=== PATIENT | female | born 1940 | race Caucasian/White ===

== ENCOUNTER 2020-10-24 01:11 | Day surgery (SDC) | payer MEDICARE, SELFPAY ==
--- NOTE | 2020-10-18 07:12 | P.HP_ITS ---
History of Present Illness History of Present Illness Consent: Risks, benefits, and alternatives have been discussed and questions answered. Patient agrees to proceed with procedure. 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 She was initially seen as an inpatient when she presented with an atypical abdominal/ flank pain and CT imaging suggesting a chronic, congenital UPJ obstruction. Initially she had little improvement in her pain with stent placement. Unexpectedly, her pain recurred within several weeks following stent removal. Stent has now been in place since July 2020 pending alleviation of COVID pandemic issues. She now presents for cystoscopy with stent removal, retrograde pyelography and possible stent replacement. Review of Systems Cardiovascular: Cardiovascular: Denies chest pain, Denies lightheadedness, Denies palpitations and Denies dyspnea Respiratory: Respiratory: Denies dyspnea Gastrointestinal: Gastrointestinal: Denies diarrhea, Denies nausea and Denies vomiting Genitourinary: Genitourinary: Denies hematuria and Denies dysuria Endocrine: Endocrine: Denies palpitations Exam Const: General: no acute distress Resp: Effort & Inspection: normal respiratory effort GI: Inspection: non-distended GI Palp: No abdominal tenderness and No Guarding due to palpation present (GI) Auscultation: normal bowel sounds Assessment and Plan Assessment and plan (1) Hydronephrosis, right: Code(s): N13.30 - Unspecified hydronephrosis Status: Acute Assessment and Plan: * cystoscopy, right stent removal, right retrograde pyelography, possible right ureteroscopy and possible right ureteral stent replacement
[2020-10-21 12:42] VITALS: BMI 29.0
--- NOTE | ~2020-10-24 | XR_ITS ---
EXAMINATION: XR retrograde pyelo w/stent LT EXAM DATE: 10/24/2020 14:42 INDICATION: Left-sided stent exchange, retrograde pyelogram. TECHNIQUE: Fluoroscopy used during XR retrograde pyelo w/stent LT performed by Dr. Sidney Landrum MD. The DAP for this procedure was 534 radcm2. Cine run(s) available for review. FINDINGS: The left ureter was cannulated and injected. There is patulous renal pelvis and evidence o f hydronephrosis. The ureter appears normal in caliber. A double-J ureteral stent was positioned. Co rrelate with procedure note. IMPRESSION: Fluoroscopy used during XR retrograde pyelo w/stent LT. Reviewed, dictated and finalized at location [facility]
--- NOTE | 2020-10-24 11:39 | WPDHPUPDATE1 ---
History and Physical Update Update Date/Time: 10/24/20 11:39 History and Physical has been reviewed, including an updated exam of the patient. There are NO changes in the patient's condition. Risks, benefits, and alternatives have been discussed and questions answered. Patient agrees to proceed with procedure.
[2020-10-24 12:45] VITALS: BP 140/61; PULSE 100; RESP 16; TEMP 36.3; O2SAT 99
[2020-10-24] MEDS: LACTATED RINGERS 1,000 ML 30 ML IV CONT (13:48)
[2020-10-24 13:54] LABS: Glucose Point of Care 168 (65-105)
[2020-10-24 13:54] LABS: Glucose Point of Care 210 (65-105)
--- NOTE | 2020-10-24 14:12 | WPDANESEPPF ---
Anes - Initial Pre Proc Eval Procedure: Operation Date: 10/24/20 14:00 Proposed Procedures p Cystoscopy, Right Retrograde Pyelogram, Right Stent Removal, Possible Right Stent Placement - Sidney Landrum MD Date/Time: 10/24/20 14:12 Surgeon: Sidney Landrum MD Pre Op Diagnosis: UPJ Obstruction Patient Data Age: 80 Gender: F Height: 5 ft 4 in Weight: 76 kg Last Vital Signs Temp 97.4 F L 10/24/20 12:45 Pulse 100 10/24/20 12:45 Resp 16 10/24/20 12:45 BP 140/61 10/24/20 12:45 Pulse Ox 99 10/24/20 12:45 Allergies Allergy/AdvReac Type Severity Reaction Status Date / Time carbamazepine [From Tegretol] Allergy Severe Other Verified 10/21/20 10:51 morphine Allergy Mild Nausea and Verified 10/24/20 13:08 Vomiting Home Medications Medication Instructions Recorded Confirmed Type amlodipine 10 mg PO DAILY 10/21/20 10/24/20 History cranberry extract 250 mg PO DAILY 10/21/20 10/24/20 History ferrous sulfate [Iron (ferrous 325 mg PO DAILY 10/21/20 10/24/20 History sulfate)] insulin glargine [Lantus Solostar 14 unit SUBCUT QAM 10/21/20 10/24/20 History U-100 Insulin] xbnstfge-btv-nlbp-FA-lutein 1 tablet PO DAILY 10/21/20 10/24/20 History [Centrum Silver Women] pantoprazole [Protonix] 40 mg PO QAM 10/21/20 10/24/20 History rosuvastatin 5 mg PO DAILY 10/21/20 10/24/20 History Laboratory Tests 10/24/20 10/24/20 12:47 13:52 POC Capillary Glucose 210 mg/dl H mg/dl 168 mg/dl H mg/dl (65-105) (65-105) Patient hx anesthesia problems: none Family hx anesthesia problems: none PMFSH Past Medical History Medical History (Updated 10/24/20 @ 14:12 by Piero Collins MD) Anemia GERD (gastroesophageal reflux disease) H/O cardiac arrest had cardiac arrest secondary to a combination of zofran, benadryl and compazine; had torsades Hyperlipidemia Hypertension Social History Social History Smoking packs per day: 0.5 Smoking cigarettes per day: 10.0 Years smoked: 20 Smoking pack-years: 10.00 Smoking status: Former smoker Tobacco type: cigarettes Smoking end date: 08/16/89 Living arrangements: alone Spiritual care concerns: No Anes - Eval Final PreProcedure Day of Procedure 10/24/20 14:12 Patient weight: normal Heart: regular rate and rhythm Lungs: clear to auscultation Airway: Mallampati scale class II Neurological: alert and oriented Last oral intake: >/= 8 hours ASA classification: III Emergent: no Anesthetic plan: proceed Anesthesia type and monitoring: general GIVS and standard monitoring Informed Consent: The patient's anesthetic plan and its attendant risks and benefits were discussed with the patient/family/POA. Questions were solicited and answers provided to the satisfaction of the patient/family/POA.
[2020-10-24] MEDS: ceFAZolin 2 GM/D5W 50 ML 2 GM/50 ML BAG IVPB (14:17)
[2020-10-24] MEDS: LIDOCAINE HCL 2% GEL UROJET 10 ML PKG MUCOUS MEM (14:28)
[2020-10-24 14:40] VITALS: BP 147/67; PULSE 102; RESP 16; O2SAT 98
--- NOTE | 2020-10-24 14:47 | PM.PROC ---
Procedure Note - Detailed Date of procedure: 10/24/20 Pre-op diagnosis: UPJ Obstruction Post-op diagnosis: same Procedure performed: Cysto. left stent removal, left RPG and left stent replacement Description of procedure: patient is brought to the operative suite where she is prepped and draped in routine sterile fashion while in a dorsal lithotomy position. 2% xylocaine jelly was introduced intraurethrally. Twenty-one F rigid cystoscope was placed into her bladder. Bladder is without mucosal abnormalities. There is no signs of intravesical neoplasm. The tip of the indwelling left ureteral stent is grasped and brought to the meatus. A 0.035 in glidewire was advanced in the left renal pelvis. The retrograde pyelography is obtained with an angiographic catheter and shows a persistent area of narrowing at the left UPJ consistent with her chronic UPJ obstruction. Under that we have to replace the stent. A 4.8 F variable length stent was positioned with the proximal coil in renal pelvis and distal coil in the bladder. Scopes and wires were removed. There was minimal encrustation on the stent and I will increase the interval to exchange to 5 months. Anesthesia: MAC Surgeon: Sidney Landrum MD Estimated blood loss (mL): 0 Drains: Yes (4.8F left ureteral stent) Packing: No Pathology: none sent Complications: No immediate complications Condition: stable Disposition: PACU
[2020-10-24 15:10] VITALS: BP 126/69; PULSE 76; RESP 16
[2020-10-24 15:40] VITALS: BP 135/81; PULSE 98; RESP 16
[2020-10-25 07:26] LABS: Glucose Point of Care 182 (65-105)
== END 2020-10-24 16:00 | disposition home or self-care (01) ==
PROVIDERS: Visit Provider Urology
PROC: (CPT 52352; principal; 2020-10-24 14:00)
DX: N13.5 Crossing vessel and stricture of ureter without hydronephrosis (principal); I10 Essential (primary) hypertension; E78.5 Hyperlipidemia, unspecified; D64.9 Anemia, unspecified; K21.9 Gastro-esophageal reflux disease without esophagitis; Z87.891 Personal history of nicotine dependence
CPT/HCPCS: 52332; 74420; 82948; A9270; C1769; C1887; C2617; J0690; J2704; J3010; J7120; Q9966

== ENCOUNTER 2021-05-29 01:28 | Day surgery (SDC) | payer MEDICARE, SELFPAY ==
[2021-05-16 13:27] VITALS: BMI 27.6
--- NOTE | 2021-05-26 08:34 | P.HP_ITS ---
History of Present Illness History of Present Illness Consent: Risks, benefits, and alternatives have been discussed and questions answered. Patient agrees to proceed with procedure. 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 We attempted to manage this with ureteral dilatation without success. After discussion additional therapeutic options including formal pyeloplasty, she elects to defer and his opting instead to manage with a chronic indwelling ureteral stent. She has little trouble with stent irritation, hematuria or recurrent urinary tract infections. Review of Systems Cardiovascular: Cardiovascular: Denies chest pain, Denies lightheadedness, Denies palpitations and Denies dyspnea Respiratory: Respiratory: Denies dyspnea Gastrointestinal: Gastrointestinal: Denies diarrhea, Denies nausea and Denies vomiting Genitourinary: Genitourinary: Denies hematuria and Denies dysuria Endocrine: Endocrine: Denies palpitations PMFSH Past Medical History Medical History Anemia GERD (gastroesophageal reflux disease) H/O cardiac arrest had cardiac arrest secondary to a combination of zofran, benadryl and compazine; had torsades Hyperlipidemia Hypertension Social History Social History Smoking packs per day: 0.5 Smoking cigarettes per day: 10.0 Years smoked: 25 Smoking pack-years: 12.50 Smoking status: Former smoker Tobacco type: cigarettes Smoking end date: 02/14/00 Substance use: never Spiritual care concerns: No Meds Home Medications and Allergies Home Medications Medication Instructions Recorded Confirmed Type Centrum Silver Women 1 tablet PO DAILY 10/21/20 05/16/21 History Lantus Solostar U-100 Insulin 8 unit SUBCUT QAM 10/21/20 05/16/21 History pantoprazole [Protonix] 40 mg PO QAM 10/21/20 05/16/21 History rosuvastatin 5 mg PO EVERY OTHER DAY 10/21/20 05/16/21 History amiodarone 200 mg PO QAM 05/16/21 05/16/21 History apixaban [Eliquis] 2.5 mg PO BID 05/16/21 05/16/21 History aspirin [Adult Low Dose Aspirin] 81 mg PO DAILY 05/16/21 05/16/21 History metoprolol tartrate 100 mg PO BID 05/16/21 05/16/21 History ondansetron HCl 4 mg PO BID PRN 05/16/21 05/16/21 History sertraline 12.5 mg PO QAM 05/16/21 05/16/21 History Allergies Allergy/AdvReac Type Severity Reaction Status Date / Time carbamazepine [From Tegretol] Allergy Severe CARDIAC Verified 05/16/21 13:13 ARREST morphine AdvReac Mild Nausea and Verified 05/16/21 13:13 Vomiting Assessment and Plan Assessment and plan (1) Hydronephrosis, left: Code(s): N13.30 - Unspecified hydronephrosis Status: Acute Assessment and Plan: * Cystoscopy, left ureteral stent removal and replacement
--- NOTE | 2021-05-28 14:13 | WPDANESEPPF ---
Anes - Initial Pre Proc Eval Procedure: Operation Date: 05/29/21 12:15 Proposed Procedures p Cystoscopy, Left Retrograde Pyelogram, Left Stent Removal and Replacement - Sidney Landrum MD Date/Time: 05/28/21 14:13 Surgeon: Sidney Landrum MD Pre Op Diagnosis: left UPJ obstruction Patient Data Age: 81 Gender: F Height: 1.63 m Weight: 73 kg Allergies Allergy/AdvReac Type Severity Reaction Status Date / Time carbamazepine [From Tegretol] Allergy Severe CARDIAC Verified 05/16/21 13:13 ARREST morphine AdvReac Mild Nausea and Verified 05/16/21 13:13 Vomiting Home Medications Medication Instructions Recorded Confirmed Type Centrum Silver Women 1 tablet PO DAILY 10/21/20 05/16/21 History Lantus Solostar U-100 Insulin 8 unit SUBCUT QAM 10/21/20 05/16/21 History pantoprazole [Protonix] 40 mg PO QAM 10/21/20 05/16/21 History rosuvastatin 5 mg PO EVERY OTHER DAY 10/21/20 05/16/21 History amiodarone 200 mg PO QAM 05/16/21 05/16/21 History apixaban [Eliquis] 2.5 mg PO BID 05/16/21 05/16/21 History aspirin [Adult Low Dose Aspirin] 81 mg PO DAILY 05/16/21 05/16/21 History metoprolol tartrate 100 mg PO BID 05/16/21 05/16/21 History ondansetron HCl 4 mg PO BID PRN 05/16/21 05/16/21 History sertraline 12.5 mg PO QAM 05/16/21 05/16/21 History Patient hx anesthesia problems: none Family hx anesthesia problems: none Results Review: All pre-operative results and documents have been reviewed as part of the pre-operative evaluation. [facility] Past Medical History Medical History (Updated 05/28/21 @ 14:17 by Maurilio Saeed MD) Anemia Anxiety Arthritis Chronic GERD CKD (chronic kidney disease) stage V requiring chronic dialysis m/w/f Depression Diabetes GERD (gastroesophageal reflux disease) H/O cardiac arrest had cardiac arrest secondary to a combination of zofran, benadryl and compazine; had torsades Hx of myocardial infarction 05/2020, 03/2021 Hyperlipidemia Hypertension Pacemaker Ureterolithiasis Surgical History Surgical History (Updated 05/29/21 @ 10:34 by Maurilio Saeed MD) AICD (automatic cardioverter/defibrillator) present Social History Social History Smoking packs per day: 0.5 Smoking cigarettes per day: 10.0 Years smoked: 25 Smoking pack-years: 12.50 Smoking status: Former smoker Tobacco type: cigarettes Smoking end date: 02/14/00 Substance use: never Living arrangements: alone Spiritual care concerns: No Anes - Eval Final PreProcedure Day of Procedure 05/28/21 14:13 Patient weight: overweight Heart: regular rate and rhythm Lungs: clear to auscultation and normal air movement Airway: Mallampati scale class II Neurological: alert and oriented Last oral intake: >/= 8 hours ASA classification: IV Emergent: no Anesthetic plan: proceed Anesthesia type and monitoring: general LMA Results Review: All pre-operative results and documents have been reviewed as part of the pre-operative evaluation. Informed Consent: The patient's anesthetic plan and its attendant risks and benefits were discussed with the patient/family/POA. Questions were solicited and answers provided to the satisfaction of the patient/family/POA.
--- NOTE | ~2021-05-29 | XR_ITS ---
EXAMINATION: XR retrograde pyelo w/stent LT EXAM DATE: 05/29/2021 13:00 INDICATION: Left-sided retrograde pyelogram, stent exchange. TECHNIQUE: Fluoroscopy used during XR retrograde pyelo w/stent LT performed by Dr. Sidney Landrum MD, urologist. The radiologist Salinas Hernandez M.D. dictating this report of the image(s) available wa s not present for the procedure. Total fluoroscopic time of 29 seconds. The DAP for this procedure w as 419 radcm2. A total of 41 images sent to PACS from the exam. Cine run(s) available for review. Comparison is made to prior examination from 10/24/2020. FINDINGS: Left ureter was injected. There is moderate left hydronephrosis with normal caliber ureter . Congenital UPJ, acquired stricturing from inflammation or mass are considerations. Correlate with patient's outside cross-sectional imaging and procedure note. Ureteral stent was placed. There is no significant interval change. IMPRESSION: Moderate left hydronephrosis, transition at UPJ with normal calibered ureter. Stent in po sition. Reviewed, dictated and finalized at location [facility]. IMPRESSION: Moderate left hydronephrosis, transition at UPJ with normal caliber ed ureter. Stent in position.
--- NOTE | 2021-05-29 06:45 | WPDHPUPDATE1 ---
History and Physical Update Update Date/Time: 05/29/21 06:45 History and Physical has been reviewed, including an updated exam of the patient. There are NO changes in the patient's condition. Risks, benefits, and alternatives have been discussed and questions answered. Patient agrees to proceed with procedure.
[2021-05-29 09:56] VITALS: BP 148/60; PULSE 91; RESP 18; TEMP 36.3; O2SAT 99
[2021-05-29] MEDS: SODIUM CHLORIDE 0.9% IV 500 ML 30 ML IV CONT (10:29)
[2021-05-29 10:32] LABS: Glucose Point of Care 135 mg/dl (65-105)
[2021-05-29 12:15] LABS: Anion Gap 8 mmol/L (8-16); Blood Urea Nitrogen 29 mg/dL (7-17); Calcium 9.5 mg/dL (8.4-10.2); Carbon Dioxide 31 mmol/L (22-30); Chloride 96 mmol/L (98-107); Estimated CRCL calculation 15 ml/min; Estimated Glomerular Filt Rate 18; Glucose 123 mg/dL (65-110); Potassium 3.9 mmol/L (3.4-5.0); Sodium 135 mmol/L (137-145)
[2021-05-29] MEDS: ceFAZolin 2 GM/D5W 50 ML 2 GM/50 ML BAG IVPB (12:36)
--- NOTE | 2021-05-29 12:57 | W.PM.PROC2 ---
Procedure Note - Detailed Date of Procedure 05/29/21 Pre-op Diagnosis Left UPJ obstruction Post-op Diagnosis same Procedure Performed Cystoscopy, left retrograde pyelography and left ureteral stent replacement Surgeon Sidney Landrum MD Description of Procedure Patient is brought to the operative suite where she is prepped and draped in routine sterile fashion while in a dorsal lithotomy position. 2% xylocaine jelly was introduced intraurethrally. Twenty-one F rigid cystoscope was placed into her bladder. Bladder is without mucosal abnormalities. There is no signs of intravesical neoplasm. The tip of the indwelling left ureteral stent is grasped and brought to the meatus. A 0.035 in glidewire was advanced in the left renal pelvis. The retrograde pyelography is obtained with an angiographic catheter and shows a persistent area of narrowing at the left UPJ consistent with her chronic UPJ obstruction. Under that we have to replace the stent. A 4.8 F variable length stent was positioned with the proximal coil in renal pelvis and distal coil in the bladder. Scopes and wires were removed. There was minimal encrustation on the stent and I will increase the interval to exchange to 9 months. Estimated Blood Loss 0 Drains Yes Packing No Pathology none sent Complications No immediate complications Condition stable Disposition PACU
[2021-05-29 13:04] VITALS: BP 95/42; PULSE 72; RESP 16; TEMP 36.2; O2SAT 100
[2021-05-29 13:22] VITALS: BP 125/50; PULSE 70; O2SAT 98
[2021-05-29 13:34] LABS: Glucose Point of Care 115 mg/dl (65-105)
[2021-05-29 13:40] VITALS: BP 145/58; PULSE 71; RESP 16; O2SAT 97
[2021-05-29 13:55] VITALS: BP 158/57; BP 165/53; PULSE 70; PULSE 75; RESP 13; RESP 20; O2SAT 97
[2021-05-29 14:25] VITALS: BP 164/54; PULSE 70; RESP 20
== END 2021-05-29 14:37 | disposition home or self-care (01) ==
PROVIDERS: PCP Family Medicine; Visit Provider Urology
PROC: (CPT 52352; principal; 2021-05-29 12:15)
DX: N13.30 Unspecified hydronephrosis (principal); I10 Essential (primary) hypertension; E78.5 Hyperlipidemia, unspecified; K21.9 Gastro-esophageal reflux disease without esophagitis; D64.9 Anemia, unspecified; Z87.891 Personal history of nicotine dependence; Z79.4 Long term (current) use of insulin; Z79.01 Long term (current) use of anticoagulants; Z79.82 Long term (current) use of aspirin
CPT/HCPCS: 52332; 36415; 74420; 80048; 82948; A9270; C1769; C1887; C2617; J0690; J2405; J2704; J3010; J7040; Q9966

== ENCOUNTER 2022-02-26 01:36 | Day surgery (SDC) | payer MEDICARE, SELFPAY ==
--- NOTE | 2022-01-29 16:15 | PM.HPGS ---
History of Present Illness History of Present Illness Consent: Risks, benefits, and alternatives have been discussed and questions answered. Patient agrees to proceed with procedure. 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 We attempted to manage? this with ureteral dilatation without success.? After discussion additional therapeutic options including formal pyeloplasty, she elects to defer and his opting instead to manage with a chronic indwelling ureteral stent.? She has little trouble with stent irritation, hematuria or recurrent urinary tract infections. Review of Systems Cardiovascular: Cardiovascular: Denies chest pain, Denies lightheadedness, Denies palpitations and Denies dyspnea Respiratory: Respiratory: Denies dyspnea Gastrointestinal: Gastrointestinal: Denies diarrhea, Denies nausea and Denies vomiting Genitourinary: Genitourinary: Denies hematuria and Denies dysuria Endocrine: Endocrine: Denies palpitations PMFSH Past Medical History Medical History Anemia Anxiety Arthritis Chronic GERD CKD (chronic kidney disease) stage V requiring chronic dialysis m/w/f Depression Diabetes GERD (gastroesophageal reflux disease) H/O cardiac arrest had cardiac arrest secondary to a combination of zofran, benadryl and compazine; had torsades Hx of myocardial infarction 05/2020, 03/2021 Hyperlipidemia Hypertension Pacemaker Ureterolithiasis Surgical History Surgical History AICD (automatic cardioverter/defibrillator) present Social History Social History Smoking packs per day: 0.5 Smoking cigarettes per day: 10.0 Years smoked: 25 Smoking pack-years: 12.50 Smoking status: Former smoker Tobacco type: cigarettes Smoking end date: 02/14/00 Substance use: never Spiritual care concerns: No Meds Home Medications and Allergies Home Medications Medication Instructions Recorded Confirmed Type insulin glargine 100 unit/mL (3 8 unit subcut QAM 10/21/20 05/29/21 History mL) subcutaneous pen (Lantus Solostar U-100 Insulin) multivit with 1 tablet PO DAILY 10/21/20 05/29/21 History jeebexdn-pdqd-WZ-lutein 8 mg iron-400 mcg-300 mcg tablet (Centrum Silver Women) pantoprazole 40 mg tablet,delayed 40 mg PO QAM 10/21/20 05/29/21 History release (Protonix) rosuvastatin 5 mg tablet 5 mg PO EVERY OTHER DAY 10/21/20 05/29/21 History amiodarone 200 mg tablet 200 mg PO QAM 05/16/21 05/29/21 History apixaban 2.5 mg tablet (Eliquis) 2.5 mg PO BID 05/16/21 05/29/21 History aspirin 81 mg tablet 81 mg PO DAILY 05/16/21 05/29/21 History metoprolol tartrate 100 mg tablet 100 mg PO BID 05/16/21 05/29/21 History ondansetron HCl 4 mg tablet 4 mg PO BID PRN Nausea 05/16/21 05/29/21 History sertraline 25 mg tablet 12.5 mg PO QAM 05/16/21 05/29/21 History cephalexin 500 mg capsule 500 mg PO Q8H #9 caps 05/29/21 Rx hydrocodone 5 mg-acetaminophen 325 1 - 2 tablet PO Q6H PRN pain #12 05/29/21 Rx mg tablet tabs Allergies Allergy/AdvReac Type Severity Reaction Status Date / Time carbamazepine [From Tegretol] Allergy Severe CARDIAC Verified 05/29/21 10:38 ARREST morphine AdvReac Mild Nausea and Verified 05/29/21 10:38 Vomiting Assessment and Plan Assessment and plan (1) Hydronephrosis, left: Code(s): N13.30 - Unspecified hydronephrosis Status: Acute Assessment and Plan: Cystoscopy, left retrograde pyelography and left ureteral stent exchange
[2022-02-24 08:57] VITALS: BMI 29.5
--- NOTE | 2022-02-24 09:30 | PC.NURSE ---
Report to the Outpatient Waiting Room, entrance under the green pavilion located off [facility], at time __1100 on date _02/26/22 . OR Time: 1300___. - You and your visitor will be asked a series of questions to screen for COVID 19 for your protection. - Only one visitor is allowed at this time. - The patient visitor is requested to leave or wait in car when not with patient. - A mask is required within the hospital. Patients may have clear liquids (water, carbonated beverages, clear teas, apple juice) until 3 hours prior to surgery (1000 AM) with a maximum of 20 ounces. - No food from midnight until time of surgery - Infants may have breast milk until 4 hours before surgery, infant formula 6 hours prior to surgery. - Children will be allowed to drink immediately following surgery. If applicable, please bring a bottle or sippy cup to assist with drinking. Juice, water, soda, and popsicles are readily available. For infants on formula, please bring formula the day of surgery. Pacifiers are allowed. Take the following medications with a SIP of water the morning of surgery: _AMLODIPINE, METOPROLOL, SERTRALINE, 1/2 AM INSULIN DOSE_ Medications to discontinue per physician N/A Date to take last dose Please no make-up, nail taiwanese, hairspray, perfume, deodorant, or body powder the day of surgery. No jewelry (including any body piercings) or valuables the day of surgery, leave them at home. Please take a shower or bath the night before, or the morning of, surgery with an antibacterial soap. Wear comfortable, loose fitting clothing. Children are encouraged to wear pajamas. - Jewelry must be removed prior to entering the operating room. Rings and piercings that are not removed may be cut off. - The hospital will not accept responsibility for valuables. - Please leave all valuables, including medications, at home the day of surgery. If you are going home after surgery, a licensed semi driver must drive you home. - NO public transportation without another adult. - We recommend that an adult stay with you for 24 hours following discharge. - We also recommend that you do not drive, make important decision, drink alcoholic beverages, or take any drugs that were not prescribed by your health care provider for at least 24 hours after your discharge time. For Pediatric surgeries, we recommend two adults accompany the child home (only one inside the building at this time). Follow any additional instructions given to you from your surgeon. If you or anyone in your household have experienced Covid symptoms in the past week, please notify your surgeon or the nurse liaison at the phone number below for possible testing. Telephone instructions given to ___PT and asked if any additional questions and then verbalized understanding. Patient advised to call surgeon office or pre surgery nurse liaison [phone] if any additional questions.
--- NOTE | ~2022-02-26 | XR_ITS ---
EXAMINATION: XR retrograde pyelo w/stent LT DATE: 02/26/2022 14:02 INDICATION: Left ureteral stent exchange with retrograde Polygram. TECHNIQUE: 62 fluoroscopic images of the abdomen and pelvis were obtained during procedure performed by Dr. Landrum. Radiologist was not present for the imaging or procedure. The amount of fluoroscopy ti me used during this procedure was 0.3 minutes. COMPARISON: None. FINDINGS: Rn Relief Charge images demonstrate a left internal ureteral stent in expected position. Subsequent images demon strate removal of the stent and retrograde pyelogram demonstrating left hydronephrosis with transitio n point at the ureteropelvic junction. Final images demonstrate a new left internal ureteral stent wi th loops formed in the left renal pelvis where there is residual contrast in the bladder there is sma ll amount of contrast and gas. IMPRESSION: 1. Exchange of a left internal ureteral stent for likely left UPJ obstruction. The newly replaced daniella nt is in expected position. Reviewed, dictated and finalized at location B. IMPRESSION: 1. Exchange of a left internal ureteral stent for likely left UPJ obstruction. The newly replaced stent is in expected position.
--- NOTE | 2022-02-26 06:54 | WPDHPUPDATE1 ---
History and Physical Update Update Date/Time: 02/26/22 06:54 History and Physical has been reviewed, including an updated exam of the patient. There are NO changes in the patient's condition. Risks, benefits, and alternatives have been discussed and questions answered. Patient agrees to proceed with procedure.
[2022-02-26 10:47] VITALS: BP 147/53; PULSE 79; RESP 16; TEMP 36.4; O2SAT 99
--- NOTE | 2022-02-26 10:51 | ECG_ITS ---
Measurements Intervals [place] Rate: 70 P: 261 DC: 242 QRS: -57 QRSD: 141 T: 6 QT: 452 QTc: 490 Interpretive Statements ELECTRONIC ATRIAL PACEMAKER RIGHT BUNDLE BRANCH BLOCK LEFT ANTERIOR FASCICULAR BLOCK BASELINE ARTIFACT- III, V1-V5 ABNORMAL ECG Electronically Signed On 02-26-2022 12:15:22 CDT by Chris Rivera D.O.
--- NOTE | 2022-02-26 11:21 | SUR.PREOP ---
av graft to right upper arm,bruit present.
[2022-02-26] MEDS: SODIUM CHLORIDE 0.9% IV 500 ML 30 ML IV CONT (11:35)
[2022-02-26 11:47] LABS: Anion Gap 7 mmol/L (8-16); Blood Urea Nitrogen 32 mg/dL (7-17); Calcium 9.3 mg/dL (8.4-10.2); Carbon Dioxide 31 mmol/L (22-30); Chloride 97 mmol/L (98-107); Estimated CRCL calculation 15 ml/min; Estimated Glomerular Filt Rate 16; Glucose 142 mg/dL (65-110); Potassium 4.4 mmol/L (3.4-5.0); Sodium 135 mmol/L (137-145)
[2022-02-26 11:50] LABS: INR 1.1; Prothrombin Time 13.3 Seconds (11.1-14.7)
--- NOTE | 2022-02-26 13:18 | WPDANESEPPF ---
Anes - Initial Pre Proc Eval Procedure: Operation Date: 02/26/22 13:00 Proposed Procedures p Cystoscopy, Left Retrograde Pyelogram, Left Stent Exchange - Sidney Landrum MD Date/Time: 02/26/22 13:18 Surgeon: Sidney Landrum MD Pre Op Diagnosis: left upj obstruction Patient Data Age: 81 Gender: F Height: 1.63 m Weight: 79.1 kg Last Vital Signs Temp 97.6 F 02/26/22 10:47 Pulse 79 02/26/22 10:47 Resp 16 02/26/22 10:47 BP 147/53 H 02/26/22 10:47 Pulse Ox 99 02/26/22 10:47 O2 Del Method Room Air 02/26/22 10:47 Allergies Allergy/AdvReac Type Severity Reaction Status Date / Time carbamazepine [From Tegretol] Allergy Severe CARDIAC Verified 02/26/22 11:03 ARREST morphine AdvReac Mild Nausea and Verified 02/26/22 11:03 Vomiting Home Medications Medication Instructions Recorded Confirmed Type insulin glargine 100 unit/mL (3 8 unit subcut QAM 10/21/20 02/26/22 History mL) subcutaneous pen (Lantus Solostar U-100 Insulin) pantoprazole 40 mg tablet,delayed 40 mg PO QAM 10/21/20 02/26/22 History release (Protonix) rosuvastatin 5 mg tablet 5 mg PO EVERY OTHER DAY 10/21/20 02/26/22 History metoprolol tartrate 100 mg tablet 100 mg PO BID 05/16/21 02/26/22 History sertraline 25 mg tablet 12.5 mg PO QAM 05/16/21 02/26/22 History amlodipine 2.5 mg tablet 1 tablet QAM 02/24/22 02/26/22 History ascorbic acid (vitamin C) 500 mg 500 mg PO 3XW 02/24/22 02/26/22 History tablet (Vitamin C) geriatric multivitamin-min 1 tablet 3XW 02/24/22 02/26/22 History sevelamer carbonate 800 mg tablet 1 tablet TID 02/24/22 02/26/22 History (Renvela) thiamine HCl (vitamin B1) 250 mg 250 mg PO 3XW 02/24/22 02/26/22 History tablet (Vitamin B-1) Laboratory Tests 02/26/22 02/26/22 11:11 11:11 PT 13.3 Seconds Seconds (11.1-14.7) INR 1.1 APTT 29.0 SECONDS SECONDS (22.3-36.8) Sodium 135 mmol/L L mmol/L (137-145) Potassium 4.4 mmol/L mmol/L (3.4-5.0) Chloride 97 mmol/L L mmol/L (98-107) Carbon Dioxide 31 mmol/L H mmol/L (22-30) Anion Gap 7 mmol/L L mmol/L (8-16) BUN 32 mg/dL H mg/dL (7-17) Creatinine 2.80 mg/dL H mg/dL (0.7-1.0) Estim Creat Clear Calc 15 ml/min ml/min Estimated GFR 16 L (59 - ) Glucose 142 mg/dL H mg/dL (65-110) Calcium 9.3 mg/dL mg/dL (8.4-10.2) Patient hx anesthesia problems: none Family hx anesthesia problems: none Results Review: All pre-operative results and documents have been reviewed as part of the pre-operative evaluation. [facility] Past Medical History Medical History Anemia Anxiety Arthritis Chronic GERD CKD (chronic kidney disease) stage V requiring chronic dialysis m/w/f Depression Diabetes GERD (gastroesophageal reflux disease) H/O cardiac arrest had cardiac arrest secondary to a combination of zofran, benadryl and compazine; had torsades Hx of myocardial infarction 05/2020, 03/2021 Hyperlipidemia Hypertension Pacemaker Ureterolithiasis Surgical History Surgical History AICD (automatic cardioverter/defibrillator) present Social History Social History Smoking packs per day: 0.5 Smoking cigarettes per day: 10.0 Years smoked: 20 Smoking pack-years: 10.00 Smoking status: Former smoker Tobacco type: cigarettes Second hand tobacco smoke exposure: No Smoking end date: 08/16/89 Alcohol intake: never Substance use: never Substance use type: does not use Living arrangements: alone Spiritual care concerns: No Anes - Eval Final PreProcedure Day of Procedure 02/26/22 13:18 Patient weight: overweight Heart: regular rate and rhythm Lungs: clear to auscultation Airway: Mallampati scale class III Neurological: alert a
[2022-02-26] MEDS: ceFAZolin 2 GM/D5W 50 ML 2 GM/50 ML BAG IVPB (13:38)
[2022-02-26] MEDS: LIDOCAINE HCL 2% GEL UROJET 10 ML PKG MUCOUS MEM (13:47)
[2022-02-26 14:05] VITALS: BP 139/47; PULSE 72; RESP 12; O2SAT 100
--- NOTE | 2022-02-26 14:05 | P.OP_ITS ---
Procedure Note - Detailed Date of Procedure 02/26/22 Pre-op Diagnosis Left upj obstruction Post-op Diagnosis Same Procedure Performed cystoscopy, left retrograde pyelogram and left ureteral stent exchange Surgeon Sidney Landrum MD Description of Procedure Patient is brought to the operative suite where she is prepped and draped in r outine sterile fashion while in a dorsal lithotomy position.? 2% xylocaine jelly was introduced intraurethrally.? Twenty-one F rigid cystoscope was placed into her bladder.? Bladder is without mucosal abnormalities.? There is no signs of intravesical neoplasm.? The tip of the indwelling left ureteral stent is grasped and brought to the meatus.? A 0.035 in glidewire was advanced in the left renal pelvis.? The retrograde pyelography is obtained with an angiographic catheter and shows a persistent area of narrowing at the left UPJ consistent with her chronic UPJ obstruction.? Under that we have to replace the stent.? A 4.8 F variable length stent was positioned with the proximal coil in renal pelvis and distal coil in the bladder.? Scopes and wires were removed.? There was minimal encrustation on the stent and I will increase the interval to exchange to 9 months. Estimated Blood Loss 0 Pathology None sent Complications No immediate complications Condition Stable Disposition Same day
[2022-02-26 14:20] VITALS: BP 153/53; PULSE 70; RESP 12; O2SAT 95
[2022-02-26 14:35] VITALS: BP 153/48; PULSE 70; RESP 14; O2SAT 92
[2022-02-26 14:41] LABS: Glucose Point of Care 133 mg/dl (65-105)
[2022-02-26] MEDS: ONDANSETRON INJ 4 MG/2 ML VIAL IV PUSH (14:51)
[2022-02-26 15:05] VITALS: BP 161/49; PULSE 70; RESP 18
[2022-02-26 15:35] VITALS: BP 154/48; PULSE 71; RESP 18
== END 2022-02-26 16:04 | disposition home or self-care (01) ==
PROVIDERS: Anesthesiology; Visit Provider Urology
PROC: (CPT 52352; principal; 2022-02-26 13:00)
DX: N13.1 Hydronephrosis with ureteral stricture, not elsewhere classified (principal); K21.9 Gastro-esophageal reflux disease without esophagitis; I12.0 Hypertensive chronic kidney disease with stage 5 chronic kidney disease or end stage renal disease; E11.22 Type 2 diabetes mellitus with diabetic chronic kidney disease; N18.6 End stage renal disease; Z99.2 Dependence on renal dialysis; E78.5 Hyperlipidemia, unspecified; Z95.0 Presence of cardiac pacemaker; I25.2 Old myocardial infarction; Z87.891 Personal history of nicotine dependence; Z79.4 Long term (current) use of insulin; Z79.82 Long term (current) use of aspirin
CPT/HCPCS: 52332; 36415; 74420; 80048; 82948; 85610; 85730; 93005; A9270; C1758; C1769; C2617; J0690; J2405; J2704; J3010; J7040

== ENCOUNTER 2022-11-12 01:15 | Day surgery (SDC) | payer MEDICARE, SELFPAY ==
[2022-11-02 12:41] VITALS: BMI 29.1
--- NOTE | 2022-11-02 13:11 | PC.NURSE ---
Report to the Outpatient Waiting Room, entrance under the green pavilion located off [facility], at time __11:00AM on date __11/12/22 . Planned Procedure Time: __1:00PM . Time changes happen often and if your time is changed the preop area will call you the afternoon before. - You and your visitor will be asked to self-screen and do not enter if you have any COVID symptoms. - Only one visitor is requested with a max of two and NO children visitors are allowed at this time. - The patient visitor may be requested to leave or wait in car when not with patient due to distancing restrictions. - A mask is optional within the hospital at this time. Patients may have clear liquids (water, carbonated beverages, clear teas, apple juice) until 3 hours prior to surgery with a maximum of 20 ounces. - No food from midnight until time of surgery Take the following medications with a SIP of water the morning of surgery: __AMLODIPINE, CARVEDILOL, SERTRALINE DO NOT STOP ANY OF YOUR OTHER PRESCRIPTION MEDICATIONS PRIOR TO SURGERY ?EXCEPT THE FOLLOWING Medications to discontinue per physician HOLD ALL VITAMINS/SUPPLEMENTS 3 DAYS PRE-OP Date to take last dose___11/08/22 Please no make-up, nail serbian, hairspray, perfume, deodorant, or body powder the day of surgery. No jewelry (including any body piercings) or valuables the day of surgery, leave them at home. Please take a shower or bath the night before, or the morning of, surgery with an antibacterial soap. Wear comfortable, loose fitting clothing. Children are encouraged to wear pajamas. - Jewelry must be removed prior to entering the operating room. Rings and piercings that are not removed may be cut off. - The hospital will not accept responsibility for valuables. - Please leave all valuables, including medications, at home the day of surgery. If you are going home after surgery, a licensed owner operator tanker truck driver must drive you home. - NO public transportation without another adult if you receive anesthesia. - We recommend that an adult stay with you for 24 hours following discharge. - We also recommend that you do not drive, make important decision, drink alcoholic beverages, or take any drugs that were not prescribed by your health care provider for at least 24 hours after your discharge time. Follow any additional instructions given to you from your surgeon. If you or anyone in your household have experienced Covid symptoms in the past week, please notify your surgeon or the nurse liaison at the phone number below for possible testing. Telephone instructions given to __PATIENT and asked if any additional questions and then verbalized understanding. Patient advised to call surgeon office or pre surgery nurse liaison [phone] if any additional questions.
--- NOTE | 2022-11-03 09:47 | PM.HPGS ---
History of Present Illness History of Present Illness Consent: Risks, benefits, and alternatives have been discussed and questions answered. Patient agrees to proceed with procedure. 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 We attempted to manage? this with ureteral dilatation without success.? After discussion additional therapeutic options including formal pyeloplasty, she elects to defer and his opting instead to manage with a chronic indwelling ureteral stent.? She has little trouble with stent irritation, hematuria or recurrent urinary tract infections. Review of Systems Review of Systems: All systems reviewed & are unremarkable except as noted in HPI and below PMFSH Past Medical History Medical History Anemia Anxiety Arthritis Chronic GERD CKD (chronic kidney disease) stage V requiring chronic dialysis m/w/f Depression Diabetes GERD (gastroesophageal reflux disease) H/O cardiac arrest had cardiac arrest secondary to a combination of zofran, benadryl and compazine; had torsades Hx of myocardial infarction 05/2020, 03/2021 Hyperlipidemia Hypertension Pacemaker Ureterolithiasis Surgical History Surgical History AICD (automatic cardioverter/defibrillator) present Social History Social History Smoking packs per day: 1 Smoking cigarettes per day: 20.0 Years smoked: 42 Smoking pack-years: 42.00 Smoking status: Former smoker Tobacco type: cigarettes Second hand tobacco smoke exposure: No Smoking end date: 02/13/03 Alcohol intake: never Substance use: never Substance use type: does not use Living arrangements: alone Spiritual care concerns: No Meds Home Medications and Allergies Home Medications Medication Instructions Recorded Confirmed Type insulin glargine 100 unit/mL (3 8 unit subcut QAM 10/21/20 11/02/22 History mL) subcutaneous pen (Lantus Solostar U-100 Insulin) pantoprazole 40 mg tablet,delayed 40 mg PO QAM 10/21/20 11/02/22 History release (Protonix) rosuvastatin 5 mg tablet 5 mg PO EVERY OTHER DAY 10/21/20 11/02/22 History sertraline 25 mg tablet 12.5 mg PO QAM 05/16/21 11/02/22 History amlodipine 2.5 mg tablet 1 tablet PO QAM 02/24/22 11/02/22 History ascorbic acid (vitamin C) 500 mg 500 mg PO 3XW 02/24/22 11/02/22 History tablet (Vitamin C) geriatric multivitamin-min 1 tablet PO 3XW 02/24/22 11/02/22 History thiamine HCl (vitamin B1) 250 mg 250 mg PO 3XW 02/24/22 11/02/22 History tablet (Vitamin B-1) carvedilol 3.125 mg tablet 3.125 mg PO BID 11/02/22 11/02/22 History furosemide 40 mg tablet 40 mg PO DAILY PRN Edema 11/02/22 11/02/22 History Allergies Allergy/AdvReac Type Severity Reaction Status Date / Time carbamazepine [From Tegretol] Allergy Severe CARDIAC Verified 11/02/22 12:35 ARREST morphine AdvReac Mild Nausea and Verified 11/02/22 12:35 Vomiting Exam Const: General: no acute distress Resp: Effort & Inspection: normal respiratory effort GI: Inspection: non-distended GI Palp: No abdominal tenderness and No Guarding due to palpation present (GI) Auscultation: normal bowel sounds Assessment and Plan Assessment and plan (1) Hydronephrosis, left: Code(s): N13.30 - Unspecified hydronephrosis Status: Acute Assessment and Plan: Cystoscopy, left retrograde pyelogram and left stent exchange
--- NOTE | 2022-11-11 15:17 | WPDANESEPPF ---
Anes - Initial Pre Proc Eval Procedure: Operation Date: 11/12/22 12:30 Proposed Procedures p Cystoscopy, Left Retrograde Pyelogram, Left Stent Exchange - Sidney Landrum MD Date/Time: 11/11/22 15:17 Surgeon: Sidney Landrum MD Pre Op Diagnosis: Lt UPJ Structure Patient Data Age: 82 Gender: F Height: 1.63 m Weight: 77 kg Allergies Allergy/AdvReac Type Severity Reaction Status Date / Time carbamazepine [From Tegretol] Allergy Severe CARDIAC Verified 11/12/22 10:59 ARREST morphine AdvReac Mild Nausea and Verified 11/12/22 10:59 Vomiting Home Medications Medication Instructions Recorded Confirmed Type insulin glargine 100 unit/mL (3 8 unit subcut QAM 10/21/20 11/02/22 History mL) subcutaneous pen (Lantus Solostar U-100 Insulin) pantoprazole 40 mg tablet,delayed 40 mg PO QAM 10/21/20 11/02/22 History release (Protonix) rosuvastatin 5 mg tablet 5 mg PO EVERY OTHER DAY 10/21/20 11/02/22 History sertraline 25 mg tablet 12.5 mg PO QAM 05/16/21 11/02/22 History amlodipine 2.5 mg tablet 1 tablet PO QAM 02/24/22 11/02/22 History ascorbic acid (vitamin C) 500 mg 500 mg PO 3XW 02/24/22 11/02/22 History tablet (Vitamin C) geriatric multivitamin-min 1 tablet PO 3XW 02/24/22 11/02/22 History thiamine HCl (vitamin B1) 250 mg 250 mg PO 3XW 02/24/22 11/02/22 History tablet (Vitamin B-1) carvedilol 3.125 mg tablet 3.125 mg PO BID 11/02/22 11/02/22 History furosemide 40 mg tablet 40 mg PO DAILY PRN Edema 11/02/22 11/02/22 History Patient hx anesthesia problems: none Family hx anesthesia problems: none Results Review: All pre-operative results and documents have been reviewed as part of the pre-operative evaluation. [facility] Past Medical History Medical History Anemia Anxiety Arthritis Chronic GERD CKD (chronic kidney disease) stage V requiring chronic dialysis m/w/f Depression Diabetes GERD (gastroesophageal reflux disease) H/O cardiac arrest had cardiac arrest secondary to a combination of zofran, benadryl and compazine; had torsades Hx of myocardial infarction 05/2020, 03/2021 Hyperlipidemia Hypertension Pacemaker Ureterolithiasis Surgical History Surgical History AICD (automatic cardioverter/defibrillator) present Social History Social History Smoking packs per day: 1 Smoking cigarettes per day: 20.0 Years smoked: 42 Smoking pack-years: 42.00 Smoking status: Former smoker Tobacco type: cigarettes Second hand tobacco smoke exposure: No Smoking end date: 02/13/03 Alcohol intake: never Substance use: never Substance use type: does not use Living arrangements: alone Spiritual care concerns: No Anes - Eval Final PreProcedure Day of Procedure 11/11/22 15:17 Patient weight: overweight Heart: regular rate and rhythm Lungs: clear to auscultation Airway: Mallampati scale class III Neurological: alert and oriented Last oral intake: >/= 8 hours ASA classification: IV Emergent: no Anesthetic plan: proceed Anesthesia type and monitoring: general GIVS and standard monitoring Results Review: All pre-operative results and documents have been reviewed as part of the pre-operative evaluation. Informed Consent: The patient's anesthetic plan and its attendant risks and benefits were discussed with the patient/family/POA. Questions were solicited and answers provided to the satisfaction of the patient/family/POA.
--- NOTE | ~2022-11-12 | XR_ITS ---
EXAMINATION: XR retrograde pyelo w/stent LT INDICATION: Retrograde left pyelogram and stent placement TECHNIQUE: 25 intraoperative fluoroscopic images are submitted for review. Total fluoroscopic time is 24.9 seconds COMPARISON: 02/26/2022 FINDINGS: Fluoroscopic images demonstrate retrograde opacification of a dilated left collecting syste m. A left internal ureteral stent is placed in expected position. Please refer to procedure note for full details. IMPRESSION: 1. Left hydronephrosis with left internal ureteral stent in expected position. Reviewed, dictated and finalized at location F.
--- NOTE | 2022-11-12 06:20 | WPDHPUPDATE1 ---
History and Physical Update Update Date/Time: 11/12/22 06:20 History and Physical has been reviewed, including an updated exam of the patient. There are NO changes in the patient's condition. Risks, benefits, and alternatives have been discussed and questions answered. Patient agrees to proceed with procedure.
[2022-11-12 10:45] VITALS: BP 172/56; PULSE 80; RESP 18; TEMP 36; O2SAT 100
[2022-11-12 11:23] LABS: Glucose Point of Care 135 mg/dl (65-105)
[2022-11-12] MEDS: SODIUM CHLORIDE 0.9% IV 500 ML 30 ML IV CONT (11:35)
[2022-11-12 11:37] LABS: Anion Gap 7 mmol/L (8-16); Blood Urea Nitrogen 21 mg/dL (7-17); Calcium 9.3 mg/dL (8.4-10.2); Carbon Dioxide 36 mmol/L (22-30); Chloride 96 mmol/L (98-107); Estimated CRCL calculation 15 ml/min; Estimated Glomerular Filt Rate 18; Glucose 146 mg/dL (65-110); Potassium 3.9 mmol/L (3.4-5.0); Sodium 139 mmol/L (137-145)
[2022-11-12 11:48] LABS: Partial Thromboplastin Time 28.3 SECONDS (22.3-36.8)
[2022-11-12] MEDS: ceFAZolin 2 GM/D5W 50 ML 2 GM/50 ML BAG IVPB (12:49)
[2022-11-12] MEDS: LIDOCAINE HCL 2% GEL UROJET 10 ML PKG MUCOUS MEM (13:12)
--- NOTE | 2022-11-12 13:18 | W.PM.PROC2 ---
Procedure Note - Detailed Date of Procedure 11/12/22 Pre-op Diagnosis Lt UPJ Structure Post-op Diagnosis Same Procedure Performed Cystoscopy, left retrograde pyelography left ureteral stent exchange Surgeon Sidney Landrum MD Anesthesia MAC Description of Procedure Patient is brought to the operative suite where she is prepped and draped in routine sterile fashion while in a dorsal lithotomy position.? 2% xylocaine jelly was introduced intraurethrally.? Twenty-one F rigid cystoscope was placed into her bladder.? Bladder is without mucosal abnormalities.? There is no signs of intravesical neoplasm.? The tip of the indwelling left ureteral stent is grasped and brought to the meatus.? A 0.035 in glidewire was advanced in the left renal pelvis.? The retrograde pyelography is obtained with an angiographic catheter and shows a persistent area of narrowing at the left UPJ consistent with her chronic UPJ obstruction.? Under that we have to replace the stent.? A 4.8 F variable length stent was positioned with the proximal coil in renal pelvis and distal coil in the bladder.? Scopes and wires were removed.? There was minimal encrustation on the stent and I will increase the interval to exchange to 9 months. Drains No Packing No Pathology None sent Complications No immediate complications Condition Stable
[2022-11-12 13:20] VITALS: BP 148/58; PULSE 85; O2SAT 98
[2022-11-12 13:25] LABS: Glucose Point of Care 123 mg/dl (65-105)
[2022-11-12 13:40] VITALS: BP 150/62; PULSE 84
[2022-11-12 14:00] VITALS: BP 170/57; PULSE 82
== END 2022-11-12 14:40 | disposition home or self-care (01) ==
PROVIDERS: Anesthesiology; Visit Provider Urology
PROC: (CPT 52352; principal; 2022-11-12 12:30)
DX: N13.0 Hydronephrosis with ureteropelvic junction obstruction (principal); I12.0 Hypertensive chronic kidney disease with stage 5 chronic kidney disease or end stage renal disease; E11.22 Type 2 diabetes mellitus with diabetic chronic kidney disease; N18.5 Chronic kidney disease, stage 5; Z99.2 Dependence on renal dialysis; E78.5 Hyperlipidemia, unspecified; I25.2 Old myocardial infarction; Z79.4 Long term (current) use of insulin; Z95.810 Presence of automatic (implantable) cardiac defibrillator; Z87.891 Personal history of nicotine dependence
CPT/HCPCS: 52332; 36415; 74420; 80048; 82948; 85730; C1758; C1769; C2617; J0690; J2704; J7040

== ENCOUNTER 2023-09-09 01:09 | Day surgery (SDC) | payer MEDICARE, SELFPAY ==
[2023-09-06 15:47] VITALS: BMI 29.1
--- NOTE | 2023-09-06 16:12 | PC.NURSE ---
Report to the Outpatient Waiting Room, entrance under the green pavilion located off [facility], at time __11:00AM on date __09/09/23 . Planned Procedure Time: _1:00PM . Time changes happen often and if your time is changed the preop area will call you the afternoon before. - You and your visitor will be asked to self-screen and do not enter if you have any COVID symptoms. - A mask is optional within the hospital at this time. Patients may have clear liquids (water, carbonated beverages, clear teas, apple juice) until 3 hours prior to surgery with a maximum of 20 ounces. - No food from midnight until time of surgery. Take the following medications with a SIP of water the morning of surgery: ___CARVEDILOL, 1/2 DOSE INSULIN=5 UNITS SQ DO NOT STOP ANY OF YOUR OTHER PRESCRIPTION MEDICATIONS PRIOR TO SURGERY ?EXCEPT THE FOLLOWING Medications to discontinue per physician ___HOLD ALL VITAMINS/SUPPLEMENTS 3 DAYS PRE-OP Date to take last dose 09/05/23 Please no make-up, nail malay, hairspray, perfume, deodorant, or body powder the day of surgery. No jewelry (including any body piercings) or valuables the day of surgery, leave them at home. Please take a shower or bath the night before, or the morning of, surgery with an antibacterial soap. Wear comfortable, loose fitting clothing. Children are encouraged to wear pajamas. - Jewelry must be removed prior to entering the operating room. Rings and piercings that are not removed may be cut off. - The hospital will not accept responsibility for valuables. - Please leave all valuables, including medications, at home the day of surgery. If you are going home after surgery, a licensed ambulette driver must drive you home. - NO public transportation without another adult if you receive anesthesia. - We recommend that an adult stay with you for 24 hours following discharge. - We also recommend that you do not drive, make important decision, drink alcoholic beverages, or take any drugs that were not prescribed by your health care provider for at least 24 hours after your discharge time. Follow any additional instructions given to you from your surgeon. If you or anyone in your household have experienced Covid symptoms in the past week, please notify your surgeon or the nurse liaison at the phone number below for possible testing. Telephone instructions given to ___PATIENT and asked if any additional questions and then verbalized understanding. Patient advised to call surgeon office or pre surgery nurse liaison [phone] if any additional questions.
--- NOTE | 2023-09-08 13:07 | WPDANESEPPF ---
Anes - Initial Pre Proc Eval Procedure: Operation Date: 09/09/23 11:30 Proposed Procedures p Cystoscopy, Left Retrograde Pyelogram, Left Ureteral Stent Exchange - Sidney Landrum MD Date/Time: 09/08/23 13:07 Surgeon: Sidney Landrum MD Pre Op Diagnosis: UP Obstruction Patient Data Age: 83 Gender: F Height: 1.63 m Weight: 77 kg Allergies Allergy/AdvReac Type Severity Reaction Status Date / Time carbamazepine [From Tegretol] Allergy Severe CARDIAC Verified 09/09/23 09:41 ARREST morphine AdvReac Mild Nausea and Verified 09/06/23 15:40 Vomiting Home Medications Medication Instructions Recorded Confirmed Type insulin glargine 100 unit/mL (3 10 unit subcut QAM 10/21/20 09/09/23 History mL) subcutaneous pen (Lantus Solostar U-100 Insulin) pantoprazole 40 mg tablet,delayed 40 mg PO QAM 10/21/20 09/09/23 History release (Protonix) rosuvastatin 5 mg tablet 5 mg PO EVERY OTHER DAY 10/21/20 09/09/23 History sertraline 25 mg tablet 12.5 mg PO HS 05/16/21 09/09/23 History ascorbic acid (vitamin C) 500 mg 500 mg PO DAILY 02/24/22 09/09/23 History tablet (Vitamin C) geriatric multivitamin-min 1 tablet PO DAILY 02/24/22 09/09/23 History thiamine HCl (vitamin B1) 250 mg 250 mg PO DAILY 02/24/22 09/09/23 History tablet (Vitamin B-1) carvedilol 3.125 mg tablet 3.125 mg PO BID 11/02/22 09/09/23 History furosemide 40 mg tablet 40 mg PO DAILY PRN Edema 11/02/22 09/06/23 History amlodipine 10 mg tablet 10 mg PO HS 09/06/23 09/09/23 History Patient hx anesthesia problems: none Family hx anesthesia problems: none Results Review: All pre-operative results and documents have been reviewed as part of the pre-operative evaluation. [facility] Past Medical History Medical History (Updated 09/08/23 @ 13:10 by Deangelo Monge DO) Anemia Anxiety Arthritis Chronic GERD CKD (chronic kidney disease) stage V requiring chronic dialysis m/w/f Depression Diabetes GERD (gastroesophageal reflux disease) H/O cardiac arrest had cardiac arrest secondary to a combination of zofran, benadryl and compazine; had torsades Hx of myocardial infarction 05/2020, 03/2021 Hyperlipidemia Hypertension ICD (implantable cardioverter-defibrillator) in place Pacemaker Ureterolithiasis Surgical History Surgical History AICD (automatic cardioverter/defibrillator) present Social History Social History Smoking packs per day: 1 Smoking cigarettes per day: 20.0 Years smoked: 20 Smoking pack-years: 20.00 Smoking status: Former smoker Tobacco type: cigarettes Second hand tobacco smoke exposure: No Smoking end date: 02/14/00 Alcohol intake: current Substance use: never Substance use type: does not use Living arrangements: alone Spiritual care concerns: No Anes - Eval Final PreProcedure Day of Procedure 09/08/23 13:07 Patient weight: overweight Heart: regular rate and rhythm Lungs: clear to auscultation Airway: Mallampati scale class II Neurological: alert and oriented Last oral intake: >/= 8 hours ASA classification: IV Emergent: no Anesthetic plan: proceed Anesthesia type and monitoring: general LMA and standard monitoring Results Review: All pre-operative results and documents have been reviewed as part of the pre-operative evaluation. Informed Consent: The patient's anesthetic plan and its attendant risks and benefits were discussed with the patient/family/POA. Questions were solicited and answers provided to the satisfaction of the patient/family/POA.
--- NOTE | ~2023-09-09 | XR_ITS ---
EXAMINATION: XR retrograde pyelo w/stent LT DATE: 09/09/2023 11:36 INDICATION: Left ureteral stent placement TECHNIQUE: Fluoroscopic images from a left internal ureteral stent placement are submitted for review . 55 seconds of fluoroscopy time. FINDINGS: There is a left double-J internal ureteral stent projecting in expected position, with proximal [place] loop at the level of the renal pelvis and distal loop in the pelvis within the bladder lumen. IMPRESSION: 1. Left internal ureteral stent placement. Please refer to real-time procedural findings for detail s. Reviewed, dictated and finalized at location [facility] IMPRESSION: 1. Left internal ureteral stent placement. Please refer to real-time procedur al findings for details.
--- NOTE | 2023-09-09 06:41 | WPDHPUPDATE1 ---
History and Physical Update Update Date/Time: 09/09/23 06:41 History and Physical has been reviewed, including an updated exam of the patient. There are NO changes in the patient's condition. Risks, benefits, and alternatives have been discussed and questions answered. Patient agrees to proceed with procedure.
[2023-09-09 09:37] VITALS: BP 143/62; PULSE 87; RESP 20; TEMP 37; O2SAT 100
[2023-09-09] MEDS: SODIUM CHLORIDE 0.9% IV 500 ML 30 ML IV CONT (10:10)
[2023-09-09 10:34] LABS: Anion Gap 5 mmol/L (8-16); Blood Urea Nitrogen 25 mg/dL (7-17); Calcium 9.4 mg/dL (8.4-10.2); Carbon Dioxide 34 mmol/L (22-30); Chloride 98 mmol/L (98-107); Estimated CRCL calculation 13 ml/min; Estimated Glomerular Filt Rate 14; Glucose 148 mg/dL (65-110); INR 1.1; Potassium 3.8 mmol/L (3.4-5.0); Prothrombin Time 14.5 Seconds (11.1-14.7); Sodium 137 mmol/L (137-145)
--- NOTE | 2023-09-09 11:01 | PM.HPGS ---
History of Present Illness History of Present Illness Consent: Risks, benefits, and alternatives have been discussed and questions answered. Patient agrees to proceed with procedure. 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 We attempted to manage? this with ureteral dilatation without success.? After discussion additional therapeutic options including formal pyeloplasty, she elects to defer and his opting instead to manage with a chronic indwelling ureteral stent.? She has little trouble with stent irritation, hematuria or recurrent urinary tract infections. Review of Systems Cardiovascular: Cardiovascular: Denies chest pain, Denies lightheadedness, Denies palpitations and Denies dyspnea Respiratory: Respiratory: Denies dyspnea Gastrointestinal: Gastrointestinal: Denies diarrhea, Denies nausea and Denies vomiting Genitourinary: Genitourinary: Denies hematuria and Denies dysuria Endocrine: Endocrine: Denies palpitations [facility] Past Medical History Medical History (Updated 09/09/23 @ 10:49 by Deangelo Monge DO) Anemia Anxiety Arthritis Carcinoid tumor of lung Chronic GERD CKD (chronic kidney disease) stage V requiring chronic dialysis m/w/f Depression Diabetes GERD (gastroesophageal reflux disease) H/O cardiac arrest had cardiac arrest secondary to a combination of zofran, benadryl and compazine; had torsades Hx of myocardial infarction 05/2020, 03/2021 Hyperlipidemia Hypertension ICD (implantable cardioverter-defibrillator) in place Pacemaker Ureterolithiasis Surgical History Surgical History AICD (automatic cardioverter/defibrillator) present Social History Social History Smoking packs per day: 1 Smoking cigarettes per day: 20.0 Years smoked: 20 Smoking pack-years: 20.00 Smoking status: Former smoker Tobacco type: cigarettes Second hand tobacco smoke exposure: No Smoking end date: 02/14/00 Alcohol intake: current Substance use: never Substance use type: does not use Living arrangements: alone Spiritual care concerns: No Meds Home Medications and Allergies Home Medications Medication Instructions Recorded Confirmed Type insulin glargine 100 unit/mL (3 10 unit subcut QAM 10/21/20 09/09/23 History mL) subcutaneous pen (Lantus Solostar U-100 Insulin) pantoprazole 40 mg tablet,delayed 40 mg PO QAM 10/21/20 09/09/23 History release (Protonix) rosuvastatin 5 mg tablet 5 mg PO EVERY OTHER DAY 10/21/20 09/09/23 History sertraline 25 mg tablet 12.5 mg PO HS 05/16/21 09/09/23 History ascorbic acid (vitamin C) 500 mg 500 mg PO DAILY 02/24/22 09/09/23 History tablet (Vitamin C) geriatric multivitamin-min 1 tablet PO DAILY 02/24/22 09/09/23 History thiamine HCl (vitamin B1) 250 mg 250 mg PO DAILY 02/24/22 09/09/23 History tablet (Vitamin B-1) carvedilol 3.125 mg tablet 3.125 mg PO BID 11/02/22 09/09/23 History furosemide 40 mg tablet 40 mg PO DAILY PRN Edema 11/02/22 09/06/23 History amlodipine 10 mg tablet 10 mg PO HS 09/06/23 09/09/23 History Allergies Allergy/AdvReac Type Severity Reaction Status Date / Time carbamazepine [From Tegretol] Allergy Severe CARDIAC Verified 09/09/23 09:41 ARREST morphine AdvReac Mild Nausea and Verified 09/06/23 15:40 Vomiting Vital Signs Vital Signs - 24 hr 09/09/23 09:37 Temperature 98.6 F Pulse Rate 87 Respiratory Rate 20 Blood Pressure 143/62 H Pulse Oximetry 100 Oxygen Delivery Room Air Exam Const: General: no acute distress Resp: Effort & Inspection: normal respiratory effort GI: Inspection: non-distended GI Palp: No abdominal tenderness and No Guarding due to palpation present (GI) Auscultation: normal bowel sounds Assessment and Plan Assessment and pl
[2023-09-09] MEDS: ceFAZolin 2 GM/D5W 50 ML 2 GM/50 ML BAG IVPB (11:20)
[2023-09-09] MEDS: LIDOCAINE HCL 2% GEL UROJET 10 ML PKG MUCOUS MEM (11:25)
--- NOTE | 2023-09-09 11:39 | W.PM.PROC2 ---
Procedure Note - Detailed Date of Procedure 09/09/23 Pre-op Diagnosis Left UPJ Obstruction Post-op Diagnosis Same Procedure Performed Cystoscopy, left retrograde pyelography and left ureteral stent replacement Surgeon Sidney Landrum MD Anesthesia General Description of Procedure Patient is brought to the operative suite where she is prepped and draped in routine sterile fashion while in a dorsal lithotomy position.? 2% xylocaine jelly was introduced intraurethrally.? Twenty-one F rigid cystoscope was placed into her bladder.? Bladder is without mucosal abnormalities.? There is no signs of intravesical neoplasm.? The tip of the indwelling left ureteral stent is grasped and brought to the meatus.? A 0.035 in glidewire was advanced in the left renal pelvis.? The retrograde pyelography is obtained with an angiographic catheter and shows a persistent area of narrowing at the left UPJ consistent with her chronic UPJ obstruction.? Under that we have to replace the stent.? A 4.8 F variable length stent was positioned with the proximal coil in renal pelvis and distal coil in the bladder.? Scopes and wires were removed.? There was minimal encrustation on the stent and I will increase the interval to exchange to 10-months. Drains Yes Packing No Pathology None sent Complications No immediate complications Condition Stable Disposition PACU
[2023-09-09 11:40] VITALS: BP 104/46; PULSE 75; RESP 14; O2SAT 93
[2023-09-09 12:05] VITALS: BP 146/59; PULSE 80; O2SAT 99
[2023-09-09 12:35] VITALS: BP 133/59; PULSE 89
== END 2023-09-09 13:04 | disposition home or self-care (01) ==
PROVIDERS: Anesthesiology; Visit Provider Urology
PROC: (CPT 52352; principal; 2023-09-09 11:30)
DX: N13.0 Hydronephrosis with ureteropelvic junction obstruction (principal); D64.9 Anemia, unspecified; F41.9 Anxiety disorder, unspecified; K21.9 Gastro-esophageal reflux disease without esophagitis; I25.2 Old myocardial infarction; E78.5 Hyperlipidemia, unspecified; E11.22 Type 2 diabetes mellitus with diabetic chronic kidney disease; I12.0 Hypertensive chronic kidney disease with stage 5 chronic kidney disease or end stage renal disease; N18.5 Chronic kidney disease, stage 5; F32.A Depression, unspecified; Z79.4 Long term (current) use of insulin; Z99.2 Dependence on renal dialysis; Z95.810 Presence of automatic (implantable) cardiac defibrillator; Z87.891 Personal history of nicotine dependence; Z85.110 Personal history of malignant carcinoid tumor of bronchus and lung
CPT/HCPCS: 52332; 36415; 74420; 80048; 85610; 85730; C1758; C1769; C2617; J0690; J2704; J3010; J7040; Q9966

== ENCOUNTER 2024-06-15 01:14 | Day surgery (SDC) | payer MEDICARE, SELFPAY ==
--- NOTE | 2024-06-02 11:51 | P.HP_ITS ---
History of Present Illness History of Present Illness Consent: Risks, benefits, and alternatives have been discussed and questions answered. Patient agrees to proceed with procedure. 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 We attempted to manage? this with ureteral dilatation without success.? After discussion additional therapeutic options including formal pyeloplasty, she elects to defer and his opting instead to manage with a chronic indwelling ureteral stent.? She has little trouble with stent irritation, hematuria or recurrent urinary tract infections. Review of Systems Review of Systems: All systems reviewed & are unremarkable except as noted in HPI and below PMFSH Past Medical History Medical History (Updated 09/09/23 @ 10:49 by Deangelo Monge, ) Anemia Anxiety Arthritis Carcinoid tumor of lung Chronic GERD CKD (chronic kidney disease) stage V requiring chronic dialysis m/w/f Depression Diabetes GERD (gastroesophageal reflux disease) H/O cardiac arrest had cardiac arrest secondary to a combination of zofran, benadryl and compazine; had torsades Hx of myocardial infarction 05/2020, 03/2021 Hyperlipidemia Hypertension ICD (implantable cardioverter-defibrillator) in place Pacemaker Ureterolithiasis Surgical History Surgical History AICD (automatic cardioverter/defibrillator) present Social History Social History Smoking packs per day: 1 Smoking cigarettes per day: 20.0 Years smoked: 20 Smoking pack-years: 20.00 Smoking status: Former smoker Tobacco type: cigarettes Second hand tobacco smoke exposure: No Smoking end date: 02/14/00 Alcohol intake: current Substance use: never Substance use type: does not use Living arrangements: alone Spiritual care concerns: No Meds Home Medications and Allergies Home Medications Medication Instructions Recorded Confirmed Type insulin glargine 100 unit/mL (3 10 unit subcut QAM 10/21/20 09/09/23 History mL) subcutaneous pen (Lantus Solostar U-100 Insulin) pantoprazole 40 mg tablet,delayed 40 mg PO QAM 10/21/20 09/09/23 History release (Protonix) rosuvastatin 5 mg tablet 5 mg PO EVERY OTHER DAY 10/21/20 09/09/23 History sertraline 25 mg tablet 12.5 mg PO HS 05/16/21 09/09/23 History ascorbic acid (vitamin C) 500 mg 500 mg PO DAILY 02/24/22 09/09/23 History tablet (Vitamin C) geriatric multivitamin-min 1 tablet PO DAILY 02/24/22 09/09/23 History thiamine HCl (vitamin B1) 250 mg 250 mg PO DAILY 02/24/22 09/09/23 History tablet (Vitamin B-1) carvedilol 3.125 mg tablet 3.125 mg PO BID 11/02/22 09/09/23 History furosemide 40 mg tablet 40 mg PO DAILY PRN Edema 11/02/22 09/06/23 History amlodipine 10 mg tablet 10 mg PO HS 09/06/23 09/09/23 History ciprofloxacin HCl 500 mg tablet 500 mg PO Q12H #6 tabs 09/09/23 Rx hydrocodone 5 mg-acetaminophen 325 1 - 2 tablet PO Q6H PRN pain #20 09/09/23 Rx mg tablet tabs Allergies Allergy/AdvReac Type Severity Reaction Status Date / Time carbamazepine [From Tegretol] Allergy Severe CARDIAC Verified 09/09/23 09:41 ARREST morphine AdvReac Mild Nausea and Verified 09/06/23 15:40 Vomiting Exam Const: General: no acute distress Resp: Effort & Inspection: normal respiratory effort GI: Inspection: non-distended GI Palp: No abdominal tenderness and No Guarding due to palpation present (GI) Auscultation: normal bowel sounds Assessment and Plan Assessment and plan (1) Hydronephrosis, left: Code(s): N13.30 - Unspecified hydronephrosis Status: Acute Assessment and Plan: * Cystoscopy, left retrograde pyelography, left ureteral stent exchange
[2024-06-07 14:04] VITALS: BMI 27.2
--- NOTE | 2024-06-07 14:19 | PC.NURSE ---
Addendum entered by Keke Quiroga RN 06/07/24 14:34: Pt to get labs at [facility], faxed orders, pt aware await results. Original Note: Report to the Outpatient Waiting Room, entrance under the green pavilion located off [facility], at time __06:00am_on date 06/15/24 . Planned Procedure Time: __07:30am .? Time changes happen often and if your time is changed the preop area will call you the afternoon before. - You and your visitor will be asked to self-screen and do not enter if you have any COVID symptoms. Please call surgeon if you need to reschedule. - A mask is optional within the hospital at this time. Patients may have clear liquids (water, carbonated beverages, clear teas, apple juice) until 3 hours prior to surgery with a maximum of 20 ounces. - No food from midnight until time of surgery and no smoking - Infants may have breast milk until 4 hours before surgery, formula 6 hours prior to surgery. - Children will be allowed to drink immediately following surgery.? If applicable, please bring a bottle or sippy cup to assist with drinking. Juice, water, soda, and popsicles are readily available.? For infants on formula, please bring formula the day of surgery.? Pacifiers are allowed. Take only the following medications with a SIP of water on the morning of surgery: ___Coreg DO NOT STOP ANY OF YOUR OTHER PRESCRIPTION MEDICATIONS PRIOR TO SURGERY EXCEPT THE FOLLOWING Medications to discontinue per physician ____Hold all vitamins and supplements 3 days prior to surgery per Anesthesia Date to take last dose____06/11/24 Hold AM insulin day of surgery. Pt prefers to have Preop Testing at [facility], pt to call Jess at [facility] office to get orders faxed to them, and if not able to do that she will call us back to get done at [facility] prior to surgery on her off Dialysis day preop. Please no make-up, nail cambodian, hairspray, perfume, deodorant, or body powder the day of surgery.? No jewelry (including any body piercings) or valuables the day of surgery, leave them at home.? Please take a shower or bath the night before, or the morning of, surgery with an antibacterial soap.? Wear comfortable, loose fitting clothing.? - Jewelry must be removed prior to entering the operating room.? Rings and piercings that are not removed may be cut off. - The hospital will not accept responsibility for valuables.? - Please leave all valuables, including medications, at home the day of surgery. If you are going home after surgery, a licensed national dedicated truck driver must drive you home.? - NO public transportation without another adult if you receive anesthesia. - We recommend that an adult stay with you for 24 hours following discharge. - We also recommend that you do not drive, make important decision, drink alcoholic beverages, or take any drugs that were not prescribed by your health care provider for at least 24 hours after your discharge time. Follow any additional instructions given to you from your surgeon. Telephone instructions given to __patient and asked if any additional questions and then verbalized understanding. Patient advised to call surgeon office or pre surgery nurse liaison [phone] if any additional questions.
--- NOTE | 2024-06-14 18:25 | P.PNAN_ITS ---
Anes - Eval Pre Procedure Procedure: Operation Date: 06/15/24 07:30 Proposed Procedures p Cystoscopy with Left Ureteral Stent Exchange - Sidney Landrum MD Date/Time: 06/14/24 18:25 Surgeon: Diallo Pre Op Diagnosis: left upj obstruction Patient Data Age: 84 Gender: F Height: 1.63 m Weight: 72 kg Allergies Allergy/AdvReac Type Severity Reaction Status Date / Time carbamazepine [From Tegretol] Allergy Severe CARDIAC Verified 06/07/24 14:07 ARREST morphine AdvReac Mild Nausea and Verified 06/07/24 14:07 Vomiting Home Medications Medication Instructions Recorded Confirmed Type insulin glargine 100 unit/mL (3 10 unit subcut QAM 10/21/20 06/07/24 History mL) subcutaneous pen (Lantus Solostar U-100 Insulin) pantoprazole 40 mg tablet,delayed 40 mg PO QAM 10/21/20 06/07/24 History release (Protonix) rosuvastatin 5 mg tablet 5 mg PO EVERY OTHER DAY 10/21/20 06/07/24 History sertraline 25 mg tablet 12.5 mg PO HS 05/16/21 06/07/24 History ascorbic acid (vitamin C) 500 mg 500 mg PO DAILY 02/24/22 06/07/24 History tablet (Vitamin C) geriatric multivitamin-min 1 tablet PO DAILY 02/24/22 06/07/24 History thiamine HCl (vitamin B1) 250 mg 250 mg PO DAILY 02/24/22 06/07/24 History tablet (Vitamin B-1) carvedilol 3.125 mg tablet 3.125 mg PO BID 11/02/22 06/07/24 History furosemide 40 mg tablet 40 mg PO DAILY PRN Edema 11/02/22 06/07/24 History amlodipine 10 mg tablet 10 mg PO HS 09/06/23 06/07/24 History ECG: Intervals Thicket Rate: 70 P: 261 CA: 242 QRS: -57 QRSD: 141 T: 6 QT: 452 QTc: 490 Interpretive Statements ELECTRONIC ATRIAL PACEMAKER RIGHT BUNDLE BRANCH BLOCK LEFT ANTERIOR FASCICULAR BLOCK BASELINE ARTIFACT- III, V1-V5 ABNORMAL ECG Electronically Signed On 02-26-2022 12:15:22 CDT by Chris Rivera D.O. Patient hx anesthesia problems: none Family hx anesthesia problems: none Results Review: All pre-operative results and documents have been reviewed as part of the pre- operative evaluation. [facility] Past Medical History Medical History (Updated 09/09/23 @ 10:49 by Deangelo Monge DO) Anemia Anxiety Arthritis Carcinoid tumor of lung Chronic GERD CKD (chronic kidney disease) stage V requiring chronic dialysis m/w/f Depression Diabetes GERD (gastroesophageal reflux disease) H/O cardiac arrest had cardiac arrest secondary to a combination of zofran, benadryl and compazi ne; had torsades Hx of myocardial infarction 05/2020, 03/2021 Hyperlipidemia Hypertension ICD (implantable cardioverter-defibrillator) in place Pacemaker Ureterolithiasis Surgical History Surgical History AICD (automatic cardioverter/defibrillator) present Social History Social History Smoking packs per day: 1 Smoking cigarettes per day: 20.0 Years smoked: 25 Smoking pack-years: 25.00 Smoking status: Former smoker Tobacco type: cigarettes Second hand tobacco smoke exposure: No Smoking end date: 08/16/03 Alcohol intake: current Substance use: never Substance use type: does not use Living arrangements: alone Spiritual care concerns: No Exam Day of Procedure 06/14/24 18:25
--- NOTE | 2024-06-14 18:28 | WPDANESEPP ---
Anes - Eval Pre Procedure Procedure: Operation Date: 06/15/24 07:30 Proposed Procedures p Cystoscopy with Left Ureteral Stent Exchange - Sidney Landrum MD Date/Time: 06/14/24 18:28 Surgeon: Diallo Pre Op Diagnosis: left upj obstruction Patient Data Age: 84 Gender: F Height: 1.63 m Weight: 72 kg Allergies Allergy/AdvReac Type Severity Reaction Status Date / Time carbamazepine [From Tegretol] Allergy Severe CARDIAC Verified 06/07/24 14:07 ARREST morphine AdvReac Mild Nausea and Verified 06/07/24 14:07 Vomiting Home Medications Medication Instructions Recorded Confirmed Type insulin glargine 100 unit/mL (3 10 unit subcut QAM 10/21/20 06/07/24 History mL) subcutaneous pen (Lantus Solostar U-100 Insulin) pantoprazole 40 mg tablet,delayed 40 mg PO QAM 10/21/20 06/07/24 History release (Protonix) rosuvastatin 5 mg tablet 5 mg PO EVERY OTHER DAY 10/21/20 06/07/24 History sertraline 25 mg tablet 12.5 mg PO HS 05/16/21 06/07/24 History ascorbic acid (vitamin C) 500 mg 500 mg PO DAILY 02/24/22 06/07/24 History tablet (Vitamin C) geriatric multivitamin-min 1 tablet PO DAILY 02/24/22 06/07/24 History thiamine HCl (vitamin B1) 250 mg 250 mg PO DAILY 02/24/22 06/07/24 History tablet (Vitamin B-1) carvedilol 3.125 mg tablet 3.125 mg PO BID 11/02/22 06/07/24 History furosemide 40 mg tablet 40 mg PO DAILY PRN Edema 11/02/22 06/07/24 History amlodipine 10 mg tablet 10 mg PO HS 09/06/23 06/07/24 History ECG: Rate: 70 P: 261 ME: 242 QRS: -57 QRSD: 141 T: 6 QT: 452 QTc: 490 Interpretive Statements ELECTRONIC ATRIAL PACEMAKER RIGHT BUNDLE BRANCH BLOCK LEFT ANTERIOR FASCICULAR BLOCK BASELINE ARTIFACT- III, V1-V5 ABNORMAL ECG Electronically Signed On 02-26-2022 12:15:22 CDT by Chris Rivera D.O. Results Review: All pre-operative results and documents have been reviewed as part of the pre-operative evaluation. [facility] Past Medical History Medical History Anemia Anxiety Arthritis Carcinoid tumor of lung Chronic GERD CKD (chronic kidney disease) stage V requiring chronic dialysis m/w/f Depression Diabetes GERD (gastroesophageal reflux disease) H/O cardiac arrest had cardiac arrest secondary to a combination of zofran, benadryl and compazine; had torsades Hx of myocardial infarction 05/2020, 03/2021 Hyperlipidemia Hypertension ICD (implantable cardioverter-defibrillator) in place Pacemaker Ureterolithiasis Surgical History Surgical History AICD (automatic cardioverter/defibrillator) present Social History Social History Smoking packs per day: 1 Smoking cigarettes per day: 20.0 Years smoked: 25 Smoking pack-years: 25.00 Smoking status: Former smoker Tobacco type: cigarettes Second hand tobacco smoke exposure: No Smoking end date: 08/16/03 Alcohol intake: current Substance use: never Substance use type: does not use Living arrangements: alone Spiritual care concerns: No Comments Cardiac arrest 2019. Pacemaker/AICD Right lung Ca. s/p radiation x6 treatments 2022 Exam Day of Procedure 06/14/24 18:28
--- NOTE | ~2024-06-15 | XR_ITS ---
EXAMINATION: XR stent kub - surgery DATE: 06/15/2024 07:50 INDICATION: Left hydronephrosis. Left ureteropelvic junction obstruction. TECHNIQUE: 63 intraoperative fluoroscopic views of the abdomen and pelvis were obtained. I was not pr esent. Fluoroscopy exposure time was 68 seconds. COMPARISON: None. FINDINGS: The director business development images demonstrate a left internal ureteral stent in expected position. The stent was removed. The left-sided retrograde pyelogram demonstrates severe hydronephrosis. The final image s demonstrate a new left internal ureteral stent in expected position. IMPRESSION: 1. Severe left hydronephrosis. 2. New left internal ureteral stent in expected position. Reviewed, dictated and finalized at location []
[2024-06-15 06:00] VITALS: BP 143/48; PULSE 81; RESP 14; TEMP 36.1; O2SAT 100
--- NOTE | 2024-06-15 06:13 | WPDHPUPDATE1 ---
History and Physical Update Update Date/Time: 06/15/24 06:13 History and Physical has been reviewed, including an updated exam of the patient. There are NO changes in the patient's condition. Risks, benefits, and alternatives have been discussed and questions answered. Patient agrees to proceed with procedure.
[2024-06-15 06:40] VITALS: BMI 27.6
[2024-06-15 06:52] LABS: Anion Gap 9 mmol/L (4-12); Blood Urea Nitrogen 22 mg/dL (7-17); Calcium 8.7 mg/dL (8.4-10.2); Carbon Dioxide 32 mmol/L (22-30); Chloride 99 mmol/L (98-107); Estimated CRCL calculation 12 ml/min; Estimated Glomerular Filt Rate 14; Glucose 121 mg/dL (65-110); Potassium 3.7 mmol/L (3.4-5.0); Sodium 140 mmol/L (137-145)
[2024-06-15 06:52] LABS: Glucose Point of Care 124 mg/dl (65-105)
[2024-06-15 07:00] LABS: Prothrombin Time 13.8 Seconds (11.1-14.7)
[2024-06-15 07:01] LABS: Partial Thromboplastin Time 40.1 Seconds (22.3-36.8)
--- NOTE | 2024-06-15 07:22 | P.PNAN_ITS ---
Anes - Eval Final PreProcedure Day of Procedure 06/15/24 07:22 Patient weight: overweight Heart: other Lungs: clear to auscultation Airway: Mallampati scale class III and other (dentures) Neurological: alert and oriented Last oral intake: >/= 8 hours ASA classification: IV Emergent: no Anesthetic plan: proceed Anesthesia type and monitoring: general GIVS and standard monitoring Results Review: All pre-operative results and documents have been reviewed as part of the pre- operative evaluation. Informed Consent: The patient's anesthetic plan and its attendant risks and benefits were discussed with the patient/family/POA. Questions were solicited and answers provided to the satisfaction of the patient/family/POA.
[2024-06-15] MEDS: ceFAZolin 2 GM/D5W 50 ML 2 GM/50 ML BAG IVPB (07:25)
[2024-06-15] MEDS: LIDOCAINE HCL 2% GEL UROJET 10 ML PKG MUCOUS MEM (07:39)
--- NOTE | 2024-06-15 07:46 | W.PM.PROC2 ---
Procedure Note - Detailed Date of Procedure 06/15/24 Pre-op Diagnosis Left UPJ obstruction Post-op Diagnosis Same Procedure Performed Cystoscopy, left ureteral stent removal, left retrograde pyelogram and left stent replacement Surgeon Sidney Landrum MD Anesthesia General Description of Procedure Patient is brought to the operative suite where she is prepped draped in routine sterile fashion while in dorsal lithotomy position after the uneventful induction of light LMA anesthetic. 2% lidocaine jelly is introduced in her urethra and allowed to stand for an appropriate period of time. Cystoscopy undertaken with a 21 F rigid cystoscope. The tip of the indwelling stent is grasped and brought to the external urethral meatus. A 0.035 in glidewire was advanced in the left renal pelvis and in the angiographic catheter was used to obtain a retrograde pyelogram to ensure appropriate positioning of a new 4.8 F variable length stent with the proximal coil in the renal pelvis and distal coil in the bladder. There was minimal incrustation on the stent and I think we will keep our 9 month stent interval change
[2024-06-15 07:50] VITALS: BP 114/44; PULSE 75; RESP 16; O2SAT 100
[2024-06-15] MEDS: LACTATED RINGERS 500 ML 100 ML IV CONT (07:50)
[2024-06-15 07:59] LABS: Glucose Point of Care 131 mg/dl (65-105)
[2024-06-15 08:00] VITALS: BP 126/45; PULSE 79; RESP 16; O2SAT 97
[2024-06-15 08:30] VITALS: BP 139/48; PULSE 78; RESP 16; O2SAT 97
[2024-06-15 09:00] VITALS: BP 146/42; PULSE 76; RESP 16
== END 2024-06-15 09:15 | disposition home or self-care (01) ==
PROVIDERS: Anesthesiology; Visit Provider Urology
PROC: (CPT 52310; principal; 2024-06-15 07:30)
DX: N13.0 Hydronephrosis with ureteropelvic junction obstruction (principal); E11.9 Type 2 diabetes mellitus without complications; E78.5 Hyperlipidemia, unspecified; D64.9 Anemia, unspecified; F41.9 Anxiety disorder, unspecified; K21.9 Gastro-esophageal reflux disease without esophagitis; I12.0 Hypertensive chronic kidney disease with stage 5 chronic kidney disease or end stage renal disease; N18.6 End stage renal disease; F32.A Depression, unspecified; I25.2 Old myocardial infarction; Z79.4 Long term (current) use of insulin; Z79.891 Long term (current) use of opiate analgesic; Z98.890 Other specified postprocedural states; Z95.0 Presence of cardiac pacemaker; Z99.2 Dependence on renal dialysis; Z87.891 Personal history of nicotine dependence
CPT/HCPCS: 52332; 36415; 80048; 82948; 85610; 85730; C1758; C2617; J0690; J2003; J2405; J2704; J3010; J7120; Q9966